=== PATIENT | male | born 1990 | race Caucasian/White ===

== ENCOUNTER 2016-11-04 19:32 | Emergency (ER) | payer OTHER | END 2016-11-04 20:16 | disposition left against medical advice (07) | LOC: ER1 19:32 | DX: Z53.21 Procedure and treatment not carried out due to patient leaving prior to being seen by health care provider (principal) | CPT/HCPCS: 93005 ==

== ENCOUNTER 2021-06-08 20:23 | Emergency (ER) | payer OTHER ==
[~2021-06-08 20:23] MED LIST: AFRIN15 M1; AZITHROMYCIN500 MG PO; BENTYL 10MG CAP10 MG PO; EFFEXOR XR75 MG PO; ENTOCORT EC3 MG PO; FLAGYL250 MG PO; FLAGYL500 MG PO; HUMIRA; K-DUR TAB 20 M20 MEQ PO; LEVOFLOXACIN500 MG PO; LORTAB 5-325 M1 EACH PO; MAPAP325 MG PO; MECLIZINE HCL25 MG PO; METRONIDAZOLE250 MG PO; NORCO 7.5-3251 EACH PO; OMEPRAZOLE20 M1 PO; OMEPRAZOLE40 MG PO; ONDANSETRON ODT4 MG PO; PERCOCET 5/325 T1 EA PO; PREDNISONE 10 M10 MG PO; PREDNISONE20 MG PO; US of Gall Bladder; US of Gallbladder; VITAMIN D250000 UNIT PO; XANAX 0.25 MG0.25 MG PO; ZOFRAN ODT 4 MG4 MG GT; ZOFRAN ODT 4 MG4 MG PO; ZOFRAN ODT4 MG PO; ZOFRAN4 MG PO
[2021-06-08 20:50] LABS: HEMOGLOBIN 15.6 gm/dl (14.0-17.5); RED BLOOD COUNT 4.98 M/UL (4.20-5.50); WHITE BLOOD COUNT 8.4 K/UL (4.5-11.0)
[2021-06-08 21:22] LABS: BUN/CREATININE RATIO 6 (0-10)
[2021-06-08] MEDS ORDERED: LOPRESSOR 25 MG25 MG PO (23:17)
== END 2021-06-09 00:33 | disposition home or self-care (01) ==
LOC: ER1 20:23
PROVIDERS: Physician Assistant
DX: R00.2 Palpitations (principal); R07.9 Chest pain, unspecified; F17.290 Nicotine dependence, other tobacco product, uncomplicated; Z90.89 Acquired absence of other organs; Z88.2 Allergy status to sulfonamides; Z88.6 Allergy status to analgesic agent; Z88.8 Allergy status to other drugs, medicaments and biological substances
CPT/HCPCS: 71045; 80053; 82550; 82553; 83735; 83874; 83880; 84484; 85025; 93005; 99285

== ENCOUNTER 2021-10-22 20:01 | Emergency (ER) | payer OTHER ==
[~2021-10-22 20:01] MED LIST changes: +LOPRESSOR 25 MG25 MG PO
[2021-10-22 20:35] LABS: HEMOGLOBIN 14.9 gm/dl (14.0-17.5); RED BLOOD COUNT 5.02 M/UL (4.20-5.50); WHITE BLOOD COUNT 11.2 K/UL (4.5-11.0)
[2021-10-22 20:55] LABS: BUN/CREATININE RATIO 4 (0-10)
[2021-10-23 01:46] LABS: RED BLOOD COUNT 4.36 M/UL (4.20-5.50); WHITE BLOOD COUNT 8.1 K/UL (4.5-11.0)
[2021-10-23 01:58] LABS: BUN/CREATININE RATIO 4 (0-10)
== END 2021-10-23 05:45 | disposition left against medical advice (07) ==
LOC: ER1 20:01 → CDU 21:22 → ER1 21:22
PROVIDERS: Internal Medicine; Physician Assistant
DX: K61.0 Anal abscess (principal); K50.90 Crohn's disease, unspecified, without complications; E87.6 Hypokalemia; Z87.19 Personal history of other diseases of the digestive system; F17.290 Nicotine dependence, other tobacco product, uncomplicated; Z20.822 Contact with and (suspected) exposure to COVID-19; Z88.6 Allergy status to analgesic agent; Z88.2 Allergy status to sulfonamides; Z88.8 Allergy status to other drugs, medicaments and biological substances
CPT/HCPCS: 80048; 80053; 83605; 83690; 83735; 85025; 85610; 86140; 87040; 96374; 96375; 96376; 99284; J1170; J2270; J2405; J2543; J7030; Q9967; U0002